=== PATIENT | male | born 1955 | race African-American/Black ===

== ENCOUNTER 2016-07-03 14:40 | Emergency (ER) | payer SELFPAY ==
[~2016-07-03] VITALS: Ht 175.3 cm; Wt 77.0 kg
[2016-07-03 14:43] VITALS: BP 155/88; PULSE 96; RESP 20; TEMP 98.7; O2SAT 95
[2016-07-03 16:00] VITALS: BP 147/82; PULSE 82; RESP 18; O2SAT 96
--- NOTE | 2016-07-03 16:23 | PD ---
HPI . "I can't piss" Chief Complaint: Complaint Time Seen by Provider: 16:15 Travel History International Travel<30 days: No Contact w/Intl Traveler<30days: No Traveled to known affect area: No History of Present Illness HPI The patient reports a 3 week history of increasing difficulty urinating. He states that he just dribbles. He states that he has to go to the bathroom very frequently. He denies any malodorous urine. He denies any previous similar history. PFSH Social History Tobacco Use: Yes Allergies-Medications (Allergen,Severity, Reaction): Coded Allergies: No Known Allergies (Unverified , 07/03/16) Review of Systems Except as stated in HPI: all other systems reviewed are Neg Genitourinary: Positive: Frequency, Nocturia, Hesitancy, Dribbling Physical Exam Narrative GENERAL: Anxious appearing 61-year-old man whose speech is a little bit pressured. SKIN: Warm and dry. HEAD: Atraumatic. Normocephalic. EYES: Pupils equal and round. ENT: No nasal bleeding or discharge. Mucous membranes pink and moist. NECK: Trachea midline. CARDIOVASCULAR: Regular rate and rhythm. RESPIRATORY: No accessory muscle use. GASTROINTESTINAL: Abdomen soft, non-tender, nondistended. I do not feel a distended bladder. MUSCULOSKELETAL: No obvious deformities. No edema. NEUROLOGICAL: Awake and alert. No obvious cranial nerve deficits. Motor grossly within normal limits. Normal speech. PSYCHIATRIC: Appropriate mood and affect; insight and judgment normal. Data Data Last Documented VS Vital Signs Date Time Temp Pulse Resp B/P Pulse Ox O2 Delivery O2 Flow Rate FiO2 07/03/16 17:15 16 07/03/16 14:43 98.7 96 155/88 95 Room Air Orders Urinary Catheter Management HENRIETTA.Q8H (07/03/16 16:18) Urinalysis - C+S If Indicated (07/03/16 16:18) Labs Laboratory Tests Test 07/03/16 17:10 Urine Color YELLOW Urine Turbidity CLEAR Urine pH 6.5 Urine Specific [place] 1.018 Urine Protein NEG mg/dL Urine Glucose (UA) NEG mg/dL Urine Ketones NEG mg/dL Urine Occult Blood NEG Urine Nitrite NEG Urine Bilirubin NEG Urine Urobilinogen LESS THAN 2.0 MG/DL Urine Leukocyte Esterase NEG Urine RBC 4 /hpf Urine Squamous Epithelial <1 /hpf Cells Urine Mucus FEW /lpf Microscopic Urinalysis Comment CATH-CULT NOT IND MDM Medical Decision Making Medical Screen Exam Complete: Yes Emergency Medical Condition: Yes Medical Record Reviewed: Yes (he does not have any old records in our system.) Differential Diagnosis Differential diagnosis of urinary retention includes but is not limited to BPH, prostatitis, UTI Narrative Course Patient presents with symptoms compatible with prostatism. A Bowers will be placed and a urinalysis was sent. He put out 1400 cc of urine. His UA is negative. I will treat him for prostatitis with Bactrim and Flomax. He should see his PMD later this week. Diagnosis Primary Impression: Acute urinary retention Patient Instructions: General Instructions, Urinary Retention in Men (ED) Scripts Tamsulosin (Flomax)0.4 Mg Cap0.4 Mg PO HS #30 CAP Ref 0 Prov:Tami Jose MD 07/03/16 Sulfamethoxazole-Trimethoprim (Bactrim DS)800-160 Mg Tab1 Tab PO BID 30 Days Ref 0 Prov:Tami Jose MD 07/03/16 Disposition: 01 DISCHARGE HOME Condition: Stable Tami Jose MD Jul 03, 2016 16:23
[2016-07-03 17:25] LABS: BLOOD, URINE NEG (NEG); COMMENT (UR) CATH-CULT NOT IND; CULTURE IF INDICATED CATH CULTURE NOT IND; GLUCOSE,URINE NEG (NEG); KETONE, URINE NEG (NEG); MUCUS URINE FEW /lpf (OCC); NITRITE,URINE NEG (NEG); PH, URINE 6.5 (5.0-8.5); SQUAMOUS EPITHELIAL CELL URINE <1 /hpf (0-5); URINE COLOR YELLOW (YELLW/STRAW)
[2016-07-03] MEDS ORDERED: TAMS5CAP PO (17:41)
[2016-07-03] MEDS ORDERED: BACT800T5 PO (17:41)
[2016-09-20] MEDS ORDERED: HYDR-3133 PO (08:46)
[2016-09-20] MEDS ORDERED: RISP4TAB41 PO (08:46)
[2016-09-20] MEDS ORDERED: FLUP5TAB PO (08:46)
== END 2016-07-03 18:29 | disposition home or self-care (01) ==
LOC: NEPA 14:40
DX: R33.9 Retention of urine, unspecified (principal); Z72.0 Tobacco use; N41.9 Inflammatory disease of prostate, unspecified
CPT/HCPCS: 51702; 81001

== ENCOUNTER 2016-07-11 14:43 | Emergency (ER) | payer SELFPAY ==
[~2016-07-11] VITALS: Ht 182.9 cm; Wt 90.0 kg
[~2016-07-11 14:43] MED LIST: BACT800T5 PO; TAMS5CAP PO
[2016-07-11 14:45] VITALS: BP 139/74; PULSE 81; RESP 18; TEMP 98.7; O2SAT 97
--- NOTE | 2016-07-11 14:55 | PD ---
HPI Chief Complaint: Complaint Time Seen by Provider: 14:53 Travel History International Travel<30 days: No Contact w/Intl Traveler<30days: No Traveled to known affect area: No History of Present Illness HPI 61-year-old male was brought into the emergency room by EMS from the [facility]. He shouldn't was here about 10 days ago for urinary retention and had a Bowers catheter placed in. He was discharged home with a Bowers catheter and was asked to follow up with urology outpatient. However because he is in [facility] rehabilitation he was unable to have the staff get an appointment for him with the urologist. He was concerned about how long the catheter was safe to be in and hence came in. Vital signs are stable and he is not in any other distress or discomfort. [facility] Past Medical History Narrative Medical List of his past medical history as reviewed from the nursing note. Bipolar Disorder: Yes Diminished Hearing: No Schizophrenia: Yes Tetanus Vaccination: Unknown Past Surgical History Appendectomy: Yes Social History Alcohol Use: No Tobacco Use: Yes Substance Use: No Allergies-Medications (Allergen,Severity, Reaction): Coded Allergies: No Known Allergies (Unverified , 07/03/16) Comments No known drug allergies. Reported Meds & Prescriptions Reported Meds & Active Scripts Active Flomax (Tamsulosin HCl) 0.4 Mg Cap 0.4 Mg PO HS Bactrim DS (Sulfamethoxazole-Trimethoprim) 800-160 Mg Tab 1 Tab PO BID 30 Days Narrative Medication List of his home medications reviewed from the nursing note. Review of Systems Except as stated in HPI: all other systems reviewed are Neg Physical Exam Narrative GENERAL: Awake, alert, no obvious distress SKIN: Warm and dry. HEAD: Atraumatic. Normocephalic. EYES: Pupils equal and round. No scleral icterus. No injection or drainage. ENT: No nasal bleeding or discharge. Mucous membranes pink and moist. NECK: Trachea midline. No JVD. CARDIOVASCULAR: Regular rate and rhythm. No murmur appreciated. RESPIRATORY: No accessory muscle use. Clear to auscultation. Breath sounds equal bilaterally. GASTROINTESTINAL: Abdomen soft, non-tender, nondistended. Hepatic and splenic margins not palpable. MUSCULOSKELETAL: No obvious deformities. No clubbing. No cyanosis. No edema. NEUROLOGICAL: Awake and alert. No obvious cranial nerve deficits. Motor grossly within normal limits. Normal speech. PSYCHIATRIC: Appropriate mood and affect; insight and judgment normal. Data Data Last Documented VS Vital Signs Date Time Temp Pulse Resp B/P Pulse Ox O2 Delivery O2 Flow Rate FiO2 07/11/16 16:34 82 18 135/79 98 07/11/16 14:45 98.7 Orders ^ Other Nursing Orders (07/11/16 14:53) MDM Medical Decision Making Medical Screen Exam Complete: Yes Emergency Medical Condition: Yes Medical Record Reviewed: Yes Differential Diagnosis Bowers catheter Narrative Course 3:06 PM the nurses calling [facility] to reiterate to them that the patient needs to follow up with the urologist and the need to make the appointment for him. She will also teach him to keep the Bowers catheter clean. Otherwise there is nothing else for me to do and I'll discharge him. He understands and agrees with this plan. Procedures EKG Prior to Arrival: No Diagnosis Primary Impression: Bowers catheter in place Referrals: Primary Care Physician 2 days Additional Instructions: Please follow-up with the urologist whose name and number was given to you when the catheter was put in. Call the office tomorrow and keep the appointment that would be given to you. The urologist will be able to direct to regarding the Bowers catheter removal. Med/Other Pt SpecificInfo: No Change to Meds Disposition: 01 DISCHARGE HOME Condition: Stable Kennedi Ramirez MD Jul 11, 2016 14:55
[2016-07-11 16:34] VITALS: BP 135/79
[2016-09-20] MEDS ORDERED: FLUP5TAB PO (08:46)
[2016-09-20] MEDS ORDERED: HYDR-3133 PO (08:46)
[2016-09-20] MEDS ORDERED: RISP4TAB41 PO (08:46)
== END 2016-07-11 16:35 | disposition home or self-care (01) ==
LOC: NEPA 14:43
DX: Z46.6 Encounter for fitting and adjustment of urinary device (principal); Z87.448 Personal history of other diseases of urinary system; Z86.59 Personal history of other mental and behavioral disorders; Z72.0 Tobacco use
CPT/HCPCS: 99283

== ENCOUNTER 2016-07-15 12:22 | Emergency (ER) | payer SELFPAY ==
[~2016-07-15] VITALS: Ht 177.8 cm; Wt 80.0 kg
[2016-07-15 12:26] VITALS: BP 149/91; PULSE 94; RESP 18; TEMP 98.7; O2SAT 97
--- NOTE | 2016-07-15 12:33 | PD ---
HPI Chief Complaint: Complaint Time Seen by Provider: 12:30 Travel History International Travel<30 days: No Contact w/Intl Traveler<30days: No History of Present Illness HPI 61-year-old male here with complaint of urinary problems. Patient has been seen here twice recently with urinary retention and had a Bowers catheter Lasix. His urinalysis was unremarkable. He was to follow up with urology but has not yet been able to do so. Patient states that he has a scant amount of blood in his Bowers catheter bag in the morning when he wakes up. He notes a slight amount of local irritation of the tip of the penis. He has not been able follow -up with urology and would like his catheter out. PFSH Past Medical History Bipolar Disorder: Yes Diminished Hearing: No Schizophrenia: Yes Past Surgical History Appendectomy: Yes Social History Alcohol Use: No Tobacco Use: Yes Substance Use: No Allergies-Medications (Allergen,Severity, Reaction): Coded Allergies: No Known Allergies (Unverified , 07/03/16) Reported Meds & Prescriptions Reported Meds & Active Scripts Active Flomax (Tamsulosin HCl) 0.4 Mg Cap 0.4 Mg PO HS Bactrim DS (Sulfamethoxazole-Trimethoprim) 800-160 Mg Tab 1 Tab PO BID 30 Days Review of Systems Except as stated in HPI: all other systems reviewed are Neg Physical Exam Narrative GENERAL: Well-appearing male in no acute distress SKIN: Warm and dry. HEAD: Normocephalic. EYESNo scleral icterus. No injection or drainage. ENT: Mucous membranes pink and moist. CARDIOVASCULAR: Regular rate and rhythm. RESPIRATORY: No accessory muscle use. GASTROINTESTINAL: Abdomen soft, non-tender, nondistended. GENITOURINARY: External external male genitalia with indwelling catheter MUSCULOSKELETAL: Moves all extremity's normally NEUROLOGICAL: Awake and alert. Normal speech. PSYCHIATRIC: Appropriate mood and affect; insight and judgment normal. MDM Medical Decision Making Medical Screen Exam Complete: Yes Emergency Medical Condition: Yes Medical Record Reviewed: Yes Differential Diagnosis 61-year-old male here with complaint of urinary problems. I history patient has evidence of BPH. He has had a Boewrs catheter in for well over a week at this time without removal in trial of void due to inability to follow-up with urology. He does not have any infectious symptoms and a scant amount of blood that he has in the morning is likely from local irritation from the catheter itself. Narrative Course Catheter was removed and patient will be discharged home to continue his Flomax for trial of void. Instructed to follow-up with urologist and return to the ER if his urinary retention returns for repeat catheter placement. Diagnosis Primary Impression: Encounter for Bowers catheter removal Referrals: Urologist call for appointment Additional Instructions: Continue Flomax as previously prescribed. Follow-up with urologist as discussed. Return to the ER for inability to urinate. Med/Other Pt SpecificInfo: No Change to Meds Disposition: 01 DISCHARGE HOME Condition: Stable Annette Andino MD Jul 15, 2016 12:33
[2016-09-20] MEDS ORDERED: HYDR-3133 PO (08:46)
[2016-09-20] MEDS ORDERED: RISP4TAB41 PO (08:46)
[2016-09-20] MEDS ORDERED: FLUP5TAB PO (08:46)
== END 2016-07-15 14:30 | disposition home or self-care (01) ==
LOC: NEPE 12:22 → NEDAMB 14:30
DX: R31.9 Hematuria, unspecified (principal); Z72.0 Tobacco use; Z46.6 Encounter for fitting and adjustment of urinary device
CPT/HCPCS: 99283

== ENCOUNTER 2016-07-18 19:25 | Emergency (ER) | payer SELFPAY ==
[2016-07-18 19:27] VITALS: BP 141/97; PULSE 91; RESP 18; TEMP 98.3; O2SAT 95
--- NOTE | 2016-07-19 00:12 | PD ---
HPI Chief Complaint: Complaint Time Seen by Provider: 23:44 Travel History International Travel<30 days: No Contact w/Intl Traveler<30days: No Traveled to known affect area: No History of Present Illness HPI 51-year-old male arrives complaining of urinary retention for about 20 hours. He has a constant pressure-like sensation throughout the lower abdomen. He had a Bowers placed here due to urinary retention. It was removed 3 days prior per his request. He reports compliance with Flomax. He has had difficulty establishing urology follow-up and has not seen a urologist. No vomiting or fever. A Bowers catheter was placed here in 2.5 L of dark urine were collected. He reports resolution of pain. Discussed in detail necessity of urology follow-up Flomax compliance. Patient demonstrates understanding of this point. We'll send the patient home with a Bowers to leg bag. [facility] and [facility] follow-[facility]. PFSH Past Medical History Bipolar Disorder: Yes Diminished Hearing: No Schizophrenia: Yes Tetanus Vaccination: Unknown Influenza Vaccination: Yes Past Surgical History Appendectomy: Yes Social History Alcohol Use: No Tobacco Use: Yes Substance Use: No Allergies-Medications (Allergen,Severity, Reaction): Coded Allergies: No Known Allergies (Unverified , 07/18/16) Reported Meds & Prescriptions Reported Meds & Active Scripts Active Flomax (Tamsulosin HCl) 0.4 Mg Cap 0.4 Mg PO HS Bactrim DS (Sulfamethoxazole-Trimethoprim) 800-160 Mg Tab 1 Tab PO BID 30 Days Review of Systems Except as stated in HPI: all other systems reviewed are Neg Physical Exam Narrative GENERAL: 61 yo M, WNWD SKIN: Warm and dry. HEAD: Atraumatic. Normocephalic. EYES: Pupils equal and round. No scleral icterus. No injection or drainage. ENT: No nasal bleeding or discharge. Mucous membranes pink and moist. NECK: Trachea midline. No JVD. CARDIOVASCULAR: Regular rate and rhythm. RESPIRATORY: No accessory muscle use. Clear to auscultation. Breath sounds equal bilaterally. GASTROINTESTINAL: Distended lower abdomen with tenderness to palpation. : Penis normal. No bleed at meatus. Suprapubic abdomen distended. MUSCULOSKELETAL: Extremities without clubbing, cyanosis, or edema. No obvious deformities. NEUROLOGICAL: Awake and alert. No obvious cranial nerve deficits. Motor grossly within normal limits. Five out of 5 muscle strength in the arms and legs. Normal speech. PSYCHIATRIC: Appropriate mood and affect; insight and judgment normal. Data Data Last Documented VS Vital Signs Date Time Temp Pulse Resp B/P Pulse Ox O2 Delivery O2 Flow Rate FiO2 07/18/16 23:44 16 07/18/16 19:27 98.3 91 141/97 95 Room Air VS reviewed Orders Urinary Catheter Insert/Apply (07/18/16 23:51) MDM Medical Decision Making Medical Screen Exam Complete: Yes Emergency Medical Condition: Yes Medical Record Reviewed: Yes Differential Diagnosis BPH, hematuria, prostatitis Narrative Course Refer to HPI. Diagnosis Primary Impression: Acute urinary retention Referrals: Hari Guerrero MD 1 day Additional Instructions: You have a choice when it comes to health care, and we are glad that you chose [facility]. Hopefully, we have met your expectations on today's visit. You are welcome to return to [facility] at any time, as we are committed to meeting the health care needs of our community. Med/Other Pt SpecificInfo: No Change to Meds Disposition: 01 DISCHARGE HOME Condition: Domo Morris MD Jul 19, 2016 00:12
[2016-09-20] MEDS ORDERED: FLUP5TAB PO (08:46)
[2016-09-20] MEDS ORDERED: HYDR-3133 PO (08:46)
[2016-09-20] MEDS ORDERED: RISP4TAB41 PO (08:46)
== END 2016-07-19 01:10 | disposition home or self-care (01) ==
LOC: NEPE 19:25
DX: R33.8 Other retention of urine (principal); Z72.0 Tobacco use
CPT/HCPCS: 51702

== ENCOUNTER 2016-08-08 13:32 | Emergency (ER) | payer OTHER ==
[~2016-08-08] VITALS: Ht 177.8 cm; Wt 80.0 kg
[2016-08-08 13:33] VITALS: BP 147/85; PULSE 102; RESP 14; TEMP 98.6; O2SAT 95
--- NOTE | 2016-08-08 16:01 | PD ---
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 Patient states he was having trouble urinating and the catheter was placed approximately one month ago. He is currently reporting suprapubic pressure that "his urine has been slow". He denies any fevers, chills, nausea, vomiting, chest pain or shortness of breath. Patient is currently living at [facility] and has not been able to follow-up with a urologist. PFSH Past Medical History Bipolar Disorder: Yes (schizoaffective bipolar disorder) Diminished Hearing: No Medical other: Yes (urinary hesitancy) Schizophrenia: Yes Past Surgical History Appendectomy: Yes Social History Alcohol Use: No Tobacco Use: Yes Substance Use: No Allergies-Medications (Allergen,Severity, Reaction): Coded Allergies: No Known Allergies (Unverified , 07/18/16) Reported Meds & Prescriptions Reported Meds & Active Scripts Active Flomax (Tamsulosin HCl) 0.4 Mg Cap 0.4 Mg PO HS Bactrim DS (Sulfamethoxazole-Trimethoprim) 800-160 Mg Tab 1 Tab PO BID 30 Days Review of Systems Except as stated in HPI: all other systems reviewed are Neg Genitourinary: Positive: Dysuria, Decreased Urinary Output, Pelvic Pain Physical Exam Narrative GENERAL: Well-nourished, well-developed patient. SKIN: Warm and dry. HEAD: Normocephalic. EYES: No scleral icterus. No injection or drainage. NECK: Supple, trachea midline. No JVD or lymphadenopathy. CARDIOVASCULAR: Regular rate and rhythm without murmurs, gallops, or rubs. RESPIRATORY: Breath sounds equal bilaterally. No accessory muscle use. GASTROINTESTINAL: Abdomen soft, non-tender, nondistended. MUSCULOSKELETAL: No cyanosis, or edema. GENITOURINARY: Circumcised. Testes descended bilaterally without evidence of rotation. No lesions or erythema. No urethral discharge. No erythema or bleeding at the meatus. Concentrated urine noted in leg bag. BACK: Nontender without obvious deformity. No CVA tenderness. Data Data Last Documented VS Vital Signs Date Time Temp Pulse Resp B/P Pulse Ox O2 Delivery O2 Flow Rate FiO2 08/08/16 13:33 98.6 102 14 147/85 95 Room Air Orders Urinalysis - C+S If Indicated (08/08/16 15:55) Urine Culture (08/08/16 16:15) Labs Laboratory Tests Test 08/08/16 16:15 Urine Color YELLOW Urine Turbidity CLOUDY Urine pH 6.5 Urine Specific [place] 1.021 Urine Protein 100 mg/dL Urine Glucose (UA) NEG mg/dL Urine Ketones NEG mg/dL Urine Occult Blood LARGE Urine Nitrite NEG Urine Bilirubin NEG Urine Urobilinogen 2.0 MG/DL Urine Leukocyte Esterase LARGE Urine RBC 55 /hpf Urine WBC 145 /hpf Urine Squamous Epithelial <1 /hpf Cells Urine Bacteria MANY /hpf Microscopic Urinalysis Comment CATH-CULTURE IND [facility] Medical Decision Making Medical Screen Exam Complete: Yes Emergency Medical Condition: Yes Medical Record Reviewed: Yes Interpretation(s) Vital Signs Date Time Temp Pulse Resp B/P Pulse Ox O2 Delivery O2 Flow Rate FiO2 08/08/16 13:33 98.6 102 14 147/85 95 Room Air Laboratory Tests Test 08/08/16 16:15 Urine Color YELLOW Urine Turbidity CLOUDY Urine pH 6.5 Urine Specific [place] 1.021 Urine Protein 100 mg/dL Urine Glucose (UA) NEG mg/dL Urine Ketones NEG mg/dL Urine Occult Blood LARGE Urine Nitrite NEG Urine Bilirubin NEG Urine Urobilinogen 2.0 MG/DL Urine Leukocyte Esterase LARGE Urine RBC 55 /hpf Urine WBC 145 /hpf Urine Squamous Epithelial <1 /hpf Cells Urine Bacteria MANY /hpf Microscopic Urinalysis Comment CATH-CULTURE IND Vital Signs Date Time Temp Pulse Resp B/P Pulse Ox O2 Delivery O2 Flow Rate FiO2 08/08/16 13:33 98.6 102 14 147/85 95 Room Air Differential Diagnosis Obstruction versus BPH versus UTI versus dermatitis versus other Narrative Course Patient is a 61-year-old male presenting to the emergency department for evaluation of suprapubic pressure, slow urinary drainage from his catheter. He also presents with irritation at the tip of his penis. His vital signs are stable, urinalysis ordered and pending. Care of patient will be transferred to provider when bed is available. Senait Villafuerte Aug 08, 2016 16:01
[2016-08-08 16:51] LABS: BACTERIA, URINE MANY /hpf; BLOOD, URINE LARGE (NEG); GLUCOSE,URINE NEG (NEG); KETONE, URINE NEG (NEG); NITRITE,URINE NEG (NEG); PH, URINE 6.5 (5.0-8.5); SQUAMOUS EPITHELIAL CELL URINE <1 /hpf (0-5); URINE COLOR YELLOW (YELLW/STRAW)
[2016-08-08 16:52] LABS: COMMENT (UR) CATH-CULTURE IND; CULTURE IF INDICATED CATH CULTURE IND
[2016-08-08] MEDS ORDERED: CEPH-460 PO (18:31)
--- NOTE | 2016-08-08 18:31 | PD ---
Data Data Last Documented VS Vital Signs Date Time Temp Pulse Resp B/P Pulse Ox O2 Delivery O2 Flow Rate FiO2 08/08/16 18:27 18 99 Room Air 08/08/16 13:33 98.6 102 147/85 Orders Urinalysis - C+S If Indicated (08/08/16 15:55) Urine Culture (08/08/16 16:15) Urinary Catheter Insert/Apply (08/08/16 18:27) Labs Laboratory Tests Test 08/08/16 16:15 Urine Color YELLOW Urine Turbidity CLOUDY Urine pH 6.5 Urine Specific [place] 1.021 Urine Protein 100 mg/dL Urine Glucose (UA) NEG mg/dL Urine Ketones NEG mg/dL Urine Occult Blood LARGE Urine Nitrite NEG Urine Bilirubin NEG Urine Urobilinogen 2.0 MG/DL Urine Leukocyte Esterase LARGE Urine RBC 55 /hpf Urine WBC 145 /hpf Urine Squamous Epithelial <1 /hpf Cells Urine Bacteria MANY /hpf Microscopic Urinalysis Comment CATH-CULTURE IND MDM Supervised Visit with ARTIE: Yes Narrative Course I, Dr. Andino, have reviewed the advance practice practioner's documentation and am in agreement, met with the patient face to face, made the diagnosis, and the medical decision making was done by me. *My assessment and Findings: 61-year-old male with indwelling urinary catheter here with complaint of "slow urine" and slight discomfort at the tip of the urethral meatus. No notable findings on examination, normal external male genitalia. Approximately 300 mL urine patient's leg bag. This is dark in color with slight sediment. Differential includes UTI, urinary retention, catheter irritation from foreign body. Patient's urinalysis notable for large white cells with leukocyte esterase, red cells and bacteria. His catheter was exchanged and he will be treated with antibiotics for home and outpatient urology follow-up. Diagnosis Primary Impression: Urinary tract infection Qualified Code: N30.01 - Acute cystitis with hematuria Additional Impression: Bowers catheter in place Referrals: Rubio Zuleta MD call for appointment Primary Care Physician call for appointment Urologist call for appointment Additional Instruction: Finish antibiotics as prescribed. Follow-up with urologist as discussed. Med/Other Pt SpecificInfo: Prescription(s) given Scripts Cephalexin (Keflex)500 Mg [id number] Mg PO Q8H #30 CAP Ref 0 Prov:Annette Andino MD 08/08/16 Disposition: 01 DISCHARGE HOME Condition: Stable Annette Andino MD Aug 08, 2016 18:31
[2016-08-08 19:01] VITALS: BP 126/81; TEMP 97.8
[2016-09-20] MEDS ORDERED: RISP4TAB41 PO (08:46)
[2016-09-20] MEDS ORDERED: HYDR-3133 PO (08:46)
[2016-09-20] MEDS ORDERED: FLUP5TAB PO (08:46)
== END 2016-08-08 19:03 | disposition home or self-care (01) ==
LOC: NEPE 13:32
DX: N39.0 Urinary tract infection, site not specified (principal); B96.29 Other Escherichia coli [E. coli] as the cause of diseases classified elsewhere; Z72.0 Tobacco use
CPT/HCPCS: 51702; 81001; 87077; 87086; 87186

== ENCOUNTER 2016-08-26 09:02 | Emergency (ER) | payer OTHER ==
[~2016-08-26] VITALS: Ht 175.3 cm; Wt 77.0 kg
[~2016-08-26 09:02] MED LIST changes: -BACT800T5 PO; +CEPH-460 PO
[2016-08-26 09:04] VITALS: BP 140/88; PULSE 88; RESP 20; TEMP 97.9; O2SAT 94
--- NOTE | 2016-08-26 09:37 | PD ---
HPI Chief Complaint: Complaint Time Seen by Provider: 09:21 Travel History International Travel<30 days: No Contact w/Intl Traveler<30days: No Traveled to known affect area: No History of Present Illness HPI 61yo M with PMH of schizophrenia, urinary retention presents to the ED with c/o foul smelling urine and urine leaking around the catheter. Pt had ramriez catheter inserted in June 2016 for urinary retention and then came on and had ramirez catheter replaced and treated for UTI with cephalexin. Pt states that he is having trouble following up with urology as outpatient. Denies any fever, chest pain, sob, abdominal pain, hematuria, back pain. PFSH Past Medical History Bipolar Disorder: Yes (schizoaffective bipolar disorder) Diminished Hearing: No Schizophrenia: Yes Tetanus Vaccination: Unknown Influenza Vaccination: No Past Surgical History Appendectomy: Yes Social History Alcohol Use: No Tobacco Use: Yes Substance Use: No Allergies-Medications (Allergen,Severity, Reaction): Coded Allergies: No Known Allergies (Unverified , 08/08/16) Reported Meds & Prescriptions Reported Meds & Active Scripts Active Cipro (Ciprofloxacin HCl) 500 Mg Tab 500 Mg PO BID 7 Days Review of Systems Except as stated in HPI: all other systems reviewed are Neg Physical Exam Narrative GENERAL: 61yo M not in distress. SKIN: Warm and dry. HEAD: Atraumatic. Normocephalic. EYES: Pupils equal and round. No scleral icterus. No injection or drainage. ENT: No nasal bleeding or discharge. Mucous membranes pink and moist. NECK: Trachea midline. No JVD. CARDIOVASCULAR: Regular rate and rhythm. No murmur appreciated. RESPIRATORY: No accessory muscle use. Clear to auscultation. Breath sounds equal bilaterally. GASTROINTESTINAL: Abdomen soft, non-tender, nondistended. No rebound tenderness or guarding. : No leaking around ramirez catheter but urine in ramirez bag does appear dark. No testicular ttp. No penile rash. MUSCULOSKELETAL: No obvious deformities. No clubbing. No cyanosis. No edema. NEUROLOGICAL: Awake and alert. No obvious cranial nerve deficits. Motor grossly within normal limits. Normal speech. PSYCHIATRIC: Appropriate mood and affect; insight and judgment normal. Data Data Last Documented VS Vital Signs Date Time Temp Pulse Resp B/P Pulse Ox O2 Delivery O2 Flow Rate FiO2 08/26/16 11:18 97.9 82 20 137/86 96 Room Air Orders Urinalysis - C+S If Indicated (08/26/16 09:31) Urinary Catheter Insert/Apply (08/26/16 10:23) Gc And Chlamydia Pcr (08/26/16 10:37) Azithromycin (Zithromax) (08/26/16 10:45) Ceftriaxone Inj (Rocephin Inj) (08/26/16 10:45) Lidocaine 1% Inj (50 Ml) (Xylocaine 1% I (08/26/16 10:45) Urine Culture (08/26/16 10:50) Labs Laboratory Tests Test 08/26/16 10:50 Urine Color YELLOW Urine Turbidity HAZY Urine pH 6.5 Urine Specific [place] 1.007 Urine Protein TRACE mg/dL Urine Glucose (UA) NEG mg/dL Urine Ketones NEG mg/dL Urine Occult Blood MOD Urine Nitrite NEG Urine Bilirubin NEG Urine Urobilinogen LESS THAN 2.0 MG/DL Urine Leukocyte Esterase LARGE Urine RBC 71 /hpf Urine WBC 181 /hpf Urine WBC Clumps MANY Urine Bacteria MOD /hpf Microscopic Urinalysis Comment CULTURE INDICATED MDM Medical Decision Making Medical Screen Exam Complete: Yes Emergency Medical Condition: Yes Differential Diagnosis UTI vs. BPH Narrative Course 61yo well appearing male here with foul smelling urine. Ramirez catheter removed. Will wait and see if pt is able to urinate on his own. If he is unable to urinate, then will replace ramirez catheter. Will obtain UA. UA showed large leukocyte. Moderate bacteria. Will give cipro 500mg PO and prescription to go home with. Last urine culture showed Ecoli that is sensitive to cipro. Pt had some white discharge on tip of penis here so GC/ chlamydia was sent. Pt given ceftriaxone 250mg IM and azithromycin 1gm PO. Return precautions given. Pt to go home with ramirez catheter with leg bag because he was not able to urine. Diagnosis Primary Impression: UTI (urinary tract infection) Qualified Code: N39.0 - Urinary tract infection with hematuria, site unspecified Referrals: Benji Simpson MD 2 days Patient Instructions: General Instructions Departure Forms: Tests/Procedures Additional Instructions: Please follow up with urology in 1-2 days. Return to the ED if symptoms worsen. Med/Other Pt SpecificInfo: Prescription(s) given Scripts Ciprofloxacin (Cipro)500 Mg Tam515 Mg PO BID 7 Days Ref 0 Prov:Lizy Cornelius DO 08/26/16 Disposition: 01 DISCHARGE HOME Condition: Stable Lizy Cornelius DO Aug 26, 2016 09:37
[2016-08-26] MEDS ORDERED: LIDOCAINE HCL 1% 50 ML VIAL XX ONE (10:45)
[2016-08-26] MEDS ORDERED: cefTRIAXone 250 MG VIAL IM ONE (10:45)
[2016-08-26] MEDS ORDERED: AZITHROMYCIN 250 MG TAB PO ONE (10:45)
[2016-08-26 11:18] VITALS: BP 137/86; PULSE 82; RESP 20; TEMP 97.9; O2SAT 96
[2016-08-26 11:25] LABS: BACTERIA, URINE MOD /hpf; BLOOD, URINE MOD (NEG); COMMENT (UR) CULTURE INDICATED; CULTURE IF INDICATED CULTURE INDICATED; GLUCOSE,URINE NEG (NEG); KETONE, URINE NEG (NEG); NITRITE,URINE NEG (NEG); PH, URINE 6.5 (5.0-8.5); URINE COLOR YELLOW (YELLW/STRAW)
[2016-08-26] MEDS ORDERED: CIPR-9 PO (11:47)
[2016-08-26] MEDS ORDERED: CIPROFLOXACIN 500 MG TAB PO ONE (12:00)
[2016-08-26 16:24] LABS: CHLAMYDIA PCR NOT DETECTED (NOT DETECT); NEISSERIA PCR NOT DETECTED (NOT DETECT)
[2016-09-20] MEDS ORDERED: RISP4TAB41 PO (08:46)
[2016-09-20] MEDS ORDERED: HYDR-3133 PO (08:46)
[2016-09-20] MEDS ORDERED: FLUP5TAB PO (08:46)
== END 2016-08-26 12:23 | disposition home or self-care (01) ==
LOC: NEPC 09:02
DX: N39.0 Urinary tract infection, site not specified (principal); B96.20 Unspecified Escherichia coli [E. coli] as the cause of diseases classified elsewhere; Z48.03 Encounter for change or removal of drains; Z46.6 Encounter for fitting and adjustment of urinary device; F20.9 Schizophrenia, unspecified; Z72.0 Tobacco use
CPT/HCPCS: 51702; 81001; 87077; 87086; 87186; 87491; 87591; 96372; 99283; J0696

== ENCOUNTER 2016-09-16 11:28 | Emergency (ER) | payer OTHER ==
[~2016-09-16] VITALS: Ht 175.3 cm; Wt 75.0 kg
[~2016-09-16 11:28] MED LIST changes: -CEPH-460 PO; +CIPR-9 PO; -TAMS5CAP PO
[2016-09-16 11:29] VITALS: BP 132/93; PULSE 94; RESP 17; TEMP 98.2; O2SAT 95
--- NOTE | 2016-09-16 11:59 | PD ---
HPI Chief Complaint: Complaint Time Seen by Provider: 11:42 Travel History International Travel<30 days: No Contact w/Intl Traveler<30days: No Traveled to known affect area: No History of Present Illness MATHIEU Is is a 61-year-old male who presents for evaluation of Bowers catheter issues. He reports that for the past few days he has been having some leaking from the urethra around his Bowers catheter. He also notes that the leg bag has become loose and his leg strap has been failing with the skin adhesive wearing off. The patient has been with a Bowers catheter for the past 2 months. It was placed because of urinary retention issues. He has not yet seen an urologist but he does have an appointment with Dr. Simpson on September 20 to evaluate this issue. He does endorse dark yellow urine which he reports is normal and at his baseline. He denies any abdominal pain, nausea or vomiting, flank pain, fevers or chills. He has no other complaints. PFSH Past Medical History Bipolar Disorder: Yes (schizoaffective bipolar disorder) Diminished Hearing: No Schizophrenia: Yes Past Surgical History Appendectomy: Yes Social History Alcohol Use: No Tobacco Use: Yes Substance Use: No Allergies-Medications (Allergen,Severity, Reaction): Coded Allergies: No Known Allergies (Unverified , 08/08/16) Reported Meds & Prescriptions Reported Meds & Active Scripts Active Cipro (Ciprofloxacin HCl) 500 Mg Tab 500 Mg PO BID 7 Days Review of Systems General / Constitutional: No: Fever, Chills Gastrointestinal: No: Nausea, Vomiting, Abdominal Pain Genitourinary: Positive: Other (Bowers catheter issues), No: Flank Pain Physical Exam Narrative GENERAL: Pleasant well-developed well-nourished male in no acute distress SKIN: Warm and dry. CARDIOVASCULAR: Regular rate and rhythm. No murmur appreciated. RESPIRATORY: No accessory muscle use. Clear to auscultation. Breath sounds equal bilaterally. GASTROINTESTINAL: Abdomen soft, non-tender, nondistended. Hepatic and splenic margins not palpable. : Bowers catheter in place. The leg bag adhesive connectors broken. The leg bag is strapped on his lower leg and this is pulling at the catheter. Yellow urine is noted in the leg bag. MUSCULOSKELETAL: No obvious deformities. NEUROLOGICAL: Awake and alert. No obvious cranial nerve deficits. Motor grossly within normal limits. Normal speech. Data Data Last Documented VS Vital Signs Date Time Temp Pulse Resp B/P Pulse Ox O2 Delivery O2 Flow Rate FiO2 09/16/16 11:29 98.2 94 17 132/93 95 MDM Medical Decision Making Medical Screen Exam Complete: Yes Emergency Medical Condition: Yes Medical Record Reviewed: Yes Differential Diagnosis Bowers catheter replacement, Bowers catheter malfunction, Bowers catheter obstruction Narrative Course 61-year-old male with urinary retention symptoms suggestive of prostatic issues for months. He presents with issues with this Bowers catheter. The catheter was removed and a new 16 [place] catheter was placed. The patient is stable for discharge, outpatient follow-up with urology in 4 days as scheduled. Diagnosis Primary Impression: Encounter for Bowers catheter removal Referrals: Benji Simpson MD Additional Instructions: Follow-up with urology in 4 days as scheduled. Stay well hydrated. Return for any emergent medical conditions. Med/Other Pt SpecificInfo: No Change to Meds Disposition: 01 DISCHARGE HOME Condition: Stable Yaw Gilbert Sep 16, 2016 11:59
--- NOTE | 2016-09-16 12:03 | PD ---
Data Data Last Documented VS Vital Signs Date Time Temp Pulse Resp B/P Pulse Ox O2 Delivery O2 Flow Rate FiO2 09/16/16 11:29 98.2 94 17 132/93 95 MDM Supervised Visit with ARTIE: Yes Narrative Course I, Dr. Andino, have reviewed the advance practice practioner's documentation and am in agreement, met with the patient face to face, made the diagnosis, and the medical decision making was done by me. *My assessment and Findings: 61-year-old male with chronic indwelling Bowers here with complaint of leakage around the urethra and at the connection to the catheter bag. Normal external male genitalia. Differential includes family practice medical doctor malfunction, and need for Bowers catheter replacement. Catheter was replaced with resolution of all the above symptoms. Patient has follow-up with urology next week for further management of his urinary retention and catheter management. Diagnosis Primary Impression: Encounter for Bowers catheter removal Referrals: Benji Simpson MD Patient Instructions: General Instructions Departure Forms: Tests/Procedures Additional Instruction: Follow-up with urology in 4 days as scheduled. Stay well hydrated. Return for any emergent medical conditions. Med/Other Pt SpecificInfo: No Change to Meds Disposition: 01 DISCHARGE HOME Condition: Stable Annette Andino MD Sep 16, 2016 12:03
[2016-09-20] MEDS ORDERED: FLUP5TAB PO (08:46)
[2016-09-20] MEDS ORDERED: HYDR-3133 PO (08:46)
[2016-09-20] MEDS ORDERED: RISP4TAB41 PO (08:46)
== END 2016-09-16 12:46 | disposition home or self-care (01) ==
LOC: NEPB 11:28
DX: T83.011A Breakdown (mechanical) of indwelling urethral catheter, initial encounter (principal); Z46.6 Encounter for fitting and adjustment of urinary device
CPT/HCPCS: 99282

== ENCOUNTER 2016-09-19 07:37 | Emergency (ER) | payer OTHER ==
[~2016-09-19] VITALS: Ht 175.3 cm; Wt 75.0 kg
[2016-09-19 07:46] VITALS: BP 148/93; PULSE 87; RESP 20; TEMP 97; O2SAT 97
--- NOTE | 2016-09-19 08:24 | PD ---
HPI Chief Complaint: Abdominal Pain Time Seen by Provider: 08:09 Travel History International Travel<30 days: No Contact w/Intl Traveler<30days: No Traveled to known affect area: No History of Present Illness HPI The patient is a 61-year-old Denise male who presents to the emergency department for abdominal pain and decreased Bowers catheter output. Patient has a history of urinary difficulties of last several months and has been referred to see a urologist. The patient has an appointment to see a urologist tomorrow , Dr. Simpson. The patient recently had his Bowers catheter changed in the emergency department on September 10. The patient states since the Bowres catheter has been changed, he has difficulty with urinary output. He notes only a small amount of urinary output which is mostly blood, now complains of abdominal pain and distention. He denies any current chest pain, shortness breath, nausea, vomiting, or fever. Symptoms are moderate, possibly exacerbated by decreased urinary output, and there are no current alleviating factors. PFSH Past Medical History Bipolar Disorder: Yes (schizoaffective bipolar disorder) Diminished Hearing: No Schizophrenia: Yes Past Surgical History Appendectomy: Yes Social History Alcohol Use: No Tobacco Use: Yes Substance Use: No Allergies-Medications (Allergen,Severity, Reaction): Coded Allergies: No Known Allergies (Unverified , 09/19/16) Reported Meds & Prescriptions Reported Meds & Active Scripts Active Reported [psych meds ] Review of Systems Except as stated in HPI: all other systems reviewed are Neg General / Constitutional: No: Fever Cardiovascular: No: Chest Pain or Discomfort Respiratory: No: Shortness of Breath Gastrointestinal: Positive: Abdominal Pain, No: Nausea, Vomiting Genitourinary: Positive: Hematuria, Decreased Urinary Output Physical Exam Narrative GENERAL: Awake, alert, pleasant 61-year-old male who appears his stated age and is in no acute respiratory distress. He does appear moderate discomfort. SKIN: Warm and dry. HEAD: Atraumatic. Normocephalic. EYES: No injection or drainage. ENT: No nasal bleeding or discharge. Mucous membranes pink and moist. NECK: Trachea midline. No JVD. CARDIOVASCULAR: Regular rate and rhythm. No murmur appreciated. RESPIRATORY: No accessory muscle use. Clear to auscultation. Breath sounds equal bilaterally. GASTROINTESTINAL: Abdomen slightly distended, bladder is palpable superior to the umbilicus. Genitourinary: Bowers catheter in place, minimal bloody fluid noted in leg bag. MUSCULOSKELETAL: No obvious deformities. No clubbing. No cyanosis. No edema. NEUROLOGICAL: Awake and alert. No obvious cranial nerve deficits. Motor grossly within normal limits. Normal speech. PSYCHIATRIC: Appropriate mood and affect; insight and judgment normal. Data Data Last Documented VS Vital Signs Date Time Temp Pulse Resp B/P Pulse Ox O2 Delivery O2 Flow Rate FiO2 09/19/16 09:00 20 09/19/16 08:51 57 132/82 98 Room Air 09/19/16 07:46 97.0 Orders Ob Poc Ultrasound (09/19/16 ) Basic Metabolic Panel (Bmp) (09/19/16 08:18) Urinalysis - C+S If Indicated (09/19/16 08:18) Complete Blood Count With Diff (09/19/16 08:18) Bladder/Catheter Irrigation (09/19/16 08:18) Morphine Inj (Morphine Inj) (09/19/16 08:30) Ondansetron Inj (Zofran Inj) (09/19/16 08:30) Urine Culture (09/19/16 08:40) Ciprofloxacin 400 Mg Premix (Cipro 400 M (09/19/16 09:45) Labs Laboratory Tests Test 09/19/16 09/19/16 09/19/16 08:40 08:50 10:59 Urine Color YELLOW Urine Turbidity HAZY Urine pH 6.0 Urine Specific [place] 1.018 Urine Protein TRACE mg/dL Urine Glucose (UA) NEG mg/dL Urine Ketones NEG mg/dL Urine Occult Blood MOD Urine Nitrite POS Urine Bilirubin NEG Urine Urobilinogen LESS THAN 2.0 MG/DL Urine Leukocyte Esterase LARGE Urine RBC /hpf Urine WBC 94 /hpf Urine Amorphous Sediment RARE Urine Bacteria MOD /hpf Microscopic Urinalysis Comment CATH-CULTURE IND White Blood Count 5.5 TH/MM3 Red Blood Count 5.57 MIL/MM3 Hemoglobin 16.2 GM/DL Hematocrit 50.4 % Mean Corpuscular Volume 90.4 FL Mean Corpuscular Hemoglobin 29.1 PG Mean Corpuscular Hemoglobin 32.2 % Concent Red Cell Distribution Width 15.3 % Platelet Count 208 TH/MM3 Mean Platelet Volume 8.5 FL Neutrophils (%) (Auto) 55.9 % Lymphocytes (%) (Auto) 26.6 % Monocytes (%) (Auto) 13.7 % Eosinophils (%) (Auto) 3.2 % Basophils (%) (Auto) 0.6 % Neutrophils # (Auto) 3.1 TH/MM3 Lymphocytes # (Auto) 1.5 TH/MM3 Monocytes # (Auto) 0.8 TH/MM3 Eosinophils # (Auto) 0.2 TH/MM3 Basophils # (Auto) 0.0 TH/MM3 CBC Comment DIFF FINAL Differential Comment Sodium Level 144 MEQ/L Potassium Level 6.2 MEQ/L Chloride Level 112 MEQ/L Carbon Dioxide Level 26.3 MEQ/L Anion Gap 6 MEQ/L Blood Urea Nitrogen 14 MG/DL Creatinine 0.97 MG/DL Estimat Glomerular Filtration 95 ML/MIN Rate Random Glucose 108 MG/DL Calcium Level 9.4 MG/DL [facility] Medical Decision Making Medical Screen Exam Complete: Yes Emergency Medical Condition: Yes Medical Record Reviewed: Yes Interpretation(s) Laboratory Tests Test 09/19/16 09/19/16 09/19/16 08:40 08:50 10:59 Urine Color YELLOW Urine Turbidity HAZY Urine pH 6.0 Urine Specific [place] 1.018 Urine Protein TRACE mg/dL Urine Glucose (UA) NEG mg/dL Urine Ketones NEG mg/dL Urine Occult Blood MOD Urine Nitrite POS Urine Bilirubin NEG Urine Urobilinogen LESS THAN 2.0 MG/DL Urine Leukocyte Esterase LARGE Urine RBC /hpf Urine WBC 94 /hpf Urine Amorphous Sediment RARE Urine Bacteria MOD /hpf Microscopic Urinalysis Comment CATH-CULTURE IND White Blood Count 5.5 TH/MM3 Red Blood Count 5.57 MIL/MM3 Hemoglobin 16.2 GM/DL Hematocrit 50.4 % Mean Corpuscular Volume 90.4 FL Mean Corpuscular Hemoglobin 29.1 PG Mean Corpuscular Hemoglobin 32.2 % Concent Red Cell Distribution Width 15.3 % Platelet Count 208 TH/MM3 Mean Platelet Volume 8.5 FL Neutrophils (%) (Auto) 55.9 % Lymphocytes (%) (Auto) 26.6 % Monocytes (%) (Auto) 13.7 % Eosinophils (%) (Auto) 3.2 % Basophils (%) (Auto) 0.6 % Neutrophils # (Auto) 3.1 TH/MM3 Lymphocytes # (Auto) 1.5 TH/MM3 Monocytes # (Auto) 0.8 TH/MM3 Eosinophils # (Auto) 0.2 TH/MM3 Basophils # (Auto) 0.0 TH/MM3 CBC Comment DIFF FINAL Differential Comment Sodium Level 144 MEQ/L Potassium Level 6.2 MEQ/L Chloride Level 112 MEQ/L Carbon Dioxide Level 26.3 MEQ/L Anion Gap 6 MEQ/L Blood Urea Nitrogen 14 MG/DL Creatinine 0.97 MG/DL Estimat Glomerular Filtration 95 ML/MIN Rate Random Glucose 108 MG/DL Calcium Level 9.4 MG/DL Differential Diagnosis Differential diagnosis includes Bowers catheter malfunction, clocked Bowers catheter, hematuria, benign prostatic hypertrophy, bladder carcinoma, acute renal failure, hyperkalemia. Narrative Course IV was established, labs are drawn and sent, and the patient was placed on cardiac telemetry monitoring and continuous pulse oximetry monitoring. The patient was administer morphine and Zofran for his discomfort. Bowers catheter was irrigated at bedside. Bowers catheter was unable to be irrigated, therefore , was removed and a new Bowers catheter was placed. The patient immediately had 1200 mL also clear urine, therefore, Bowers catheter was clamped. The patient then had a Bowers catheter unclamped and continue to have good output. Patient had multiple re-collections secondary to hemolysis, potassium was elevated at 6.2, however, there was hemolysis. The patient's creatinine is normal. Patient has good urinary outflow, was noted to have a UTI, was administered Cipro 4 mg intravenously. The patient was discharged home on Cipro and is advised to follow-up with his urologist tomorrow as directed. Diagnosis Primary Impression: Acute urinary retention Additional Impression: UTI (urinary tract infection) Qualified Code: N39.0 - Urinary tract infection with hematuria, site unspecified Patient Instructions: General Instructions Additional Instructions: Cipro as directed. Follow-up with her primary physician. Return if symptoms worsen or progress. Med/Other Pt SpecificInfo: Prescription(s) given Scripts Ciprofloxacin (Cipro)500 Mg [id number] Mg PO BID 7 Days Ref 0 Prov:Saud Collins MD 09/19/16 Disposition: 01 DISCHARGE HOME Condition: Stable Saud Collins MD Sep 19, 2016 08:24
[2016-09-19] MEDS ORDERED: ONDANSETRON HCL 4 MG/2 ML VIAL IV PUSH ONE (08:30)
[2016-09-19] MEDS ORDERED: MORPHINE SULFATE 4 MG/ML INJ IV PUSH ONE (08:30)
[2016-09-19] MEDS ORDERED: [UNRECOGNIZED DRUG - REMARK] (08:50)
[2016-09-19 08:51] VITALS: BP 132/82; PULSE 57; RESP 20; O2SAT 57; O2SAT 98
[2016-09-19] MEDS ORDERED: psych meds (08:51)
[2016-09-19 09:00] VITALS: RESP 20
[2016-09-19 09:17] LABS: AUTOMATED NEUTROPHIL # 3.1 TH/MM3 (1.8-7.7); BASOPHIL % 0.6 % (0.0-2.0); EOSINOPHIL # 0.2 TH/MM3 (0-0.4); EOSINOPHIL % 3.2 % (0.0-4.0); HEMATOCRIT 50.4 % (39.0-51.0); HEMO FLAGS DIFF FINAL; LYMPH % 26.6 % (9.0-44.0); LYMPHOCYTE # 1.5 TH/MM3 (1.0-4.8); MEAN CELL VOLUME 90.4 FL (80.0-100.0); MEAN CORPUSCULAR HEMOGLOBIN 29.1 PG (27.0-34.0); MEAN CORPUSCULAR HGB CONC 32.2 % (32.0-36.0); MONO % 13.7 % (0.0-8.0); NEUT % 55.9 % (16.0-70.0); PLATELET COUNT 208 TH/MM3 (150-450); RED BLOOD COUNT 5.57 MIL/MM3 (4.50-5.90); RED CELL DISTRIBUTION WIDTH 15.3 % (11.6-17.2); WHITE BLOOD COUNT 5.5 TH/MM3 (4.0-11.0)
[2016-09-19 09:34] LABS: BACTERIA, URINE MOD /hpf; BLOOD, URINE MOD (NEG); COMMENT (UR) CATH-CULTURE IND; CULTURE IF INDICATED CATH CULTURE IND; GLUCOSE,URINE NEG (NEG); KETONE, URINE NEG (NEG); NITRITE,URINE POS (NEG); URINE COLOR YELLOW (YELLW/STRAW)
[2016-09-19] MEDS ORDERED: CIPROFLOXACIN 400 MG PREMIX 200 ML IV ONE (09:45)
[2016-09-19 11:26] LABS: BICARBONATE 26.3 MEQ/L (21.0-32.0)
[2016-09-19 11:27] LABS: POTASSIUM 6.2 MEQ/L (3.5-5.1)
[2016-09-19] MEDS ORDERED: CIPR-9 PO (11:34)
[2016-09-19 11:53] VITALS: BP 134/84
[2016-09-20] MEDS ORDERED: RISP4TAB41 PO (08:46)
[2016-09-20] MEDS ORDERED: FLUP5TAB PO (08:46)
[2016-09-20] MEDS ORDERED: HYDR-3133 PO (08:46)
== END 2016-09-19 12:16 | disposition home or self-care (01) ==
LOC: NEPE 07:37
DX: R33.9 Retention of urine, unspecified (principal); N39.0 Urinary tract infection, site not specified; R31.9 Hematuria, unspecified; Z72.0 Tobacco use; B95.7 Other staphylococcus as the cause of diseases classified elsewhere
CPT/HCPCS: 51700; 80048; 81001; 85025; 86403; 87077; 87086; 87186; 96365; 96375; 99284; J0744; J2270; J2405

== ENCOUNTER 2016-09-24 22:47 | Emergency (ER) | payer OTHER ==
[~2016-09-24] VITALS: Ht 175.3 cm; Wt 72.0 kg
[~2016-09-24 22:47] MED LIST changes: +FLUP5TAB PO; +HYDR-3133 PO; +RISP4TAB41 PO
[2016-09-24 22:55] VITALS: BP 138/90; PULSE 62; RESP 17; TEMP 98.6; O2SAT 99
--- NOTE | 2016-09-24 23:13 | PD ---
HPI Chief Complaint: Complaint Time Seen by Provider: 23:09 Travel History International Travel<30 days: No Contact w/Intl Traveler<30days: No History of Present Illness HPI 61-year-old male here with complaint of inability to urinate. Patient has indwelling catheter for urinary retention. Patient states that it stopped draining this afternoon and he has not been able to urinate since. He notes some suprapubic discomfort and fullness in the urge to urinate. He has not noticed any sediment in the catheter. He has a scant amount of blood around the tip the urethral meatus, which patient states is not unusual for him. PFSH Past Medical History Bipolar Disorder: Yes (schizoaffective bipolar disorder) Diminished Hearing: No Schizophrenia: Yes Past Surgical History Appendectomy: Yes Social History Alcohol Use: No Tobacco Use: Yes (1ppd) Substance Use: No (hx of ) Allergies-Medications (Allergen,Severity, Reaction): Coded Allergies: No Known Allergies (Unverified , 09/20/16) Reported Meds & Prescriptions Reported Meds & Active Scripts Active Cipro (Ciprofloxacin HCl) 500 Mg Tab 500 Mg PO BID 7 Days Reported Fluphenazine (Fluphenazine HCl) 5 Mg Tab 10 Mg PO HS Hydroxyzine HCl 25 Mg Tab 25 Mg PO TID Risperdal (Risperidone) 4 Mg Tab 4 Mg PO HS Review of Systems Except as stated in HPI: all other systems reviewed are Neg Physical Exam Narrative GENERAL: Well-appearing male in no acute distress SKIN: Focused skin assessment warm/dry. HEAD: Normocephalic. EYES: No scleral icterus. No injection or drainage. ENT: Mucous membranes pink and moist. CARDIOVASCULAR: Regular rate and rhythm. RESPIRATORY: No accessory muscle use. GASTROINTESTINAL: Abdomen soft, minimal suprapubic tenderness without rebound or guarding GENITOURINARY: External external male genitalia with indwelling Bowers catheter MUSCULOSKELETAL: No obvious deformities. No edema. NEUROLOGICAL: Awake and alert. Normal speech. PSYCHIATRIC: Appropriate mood and affect; insight and judgment normal. MDM Medical Decision Making Medical Screen Exam Complete: Yes Emergency Medical Condition: Yes Medical Record Reviewed: Yes Differential Diagnosis 61-year-old male here with complaint of inability to urinate, Bowers catheter problem. Differential includes misplaced catheter, catheter malfunction, clotted catheter, UTI. Narrative Course Patient's catheter was flushed on examination and afterwards urine began flowing freely. There is no evidence of sediment, blood. Catheter did not need to be replaced. Patient felt markedly improved and will be discharged home. Diagnosis Primary Impression: Acute urinary retention Additional Impression: Bowers catheter in place Referrals: Urologist call for appointment Patient Instructions: General Instructions, Urinary Retention in Men (DC) Additional Instructions: Follow-up with urologist as scheduled. Return to the ER for the warning signs discussed. Med/Other Pt SpecificInfo: No Change to Meds Disposition: 01 DISCHARGE HOME Condition: Stable Annette Andino MD Sep 24, 2016 23:13
== END 2016-09-25 06:49 | disposition home or self-care (01) ==
LOC: NEPE 22:47 → NEPA 09-25 06:49
DX: R33.9 Retention of urine, unspecified (principal); F17.210 Nicotine dependence, cigarettes, uncomplicated; T83.018D Breakdown (mechanical) of other urinary catheter, subsequent encounter
CPT/HCPCS: 99283

== ENCOUNTER 2016-09-30 01:51 | Emergency (ER) | payer OTHER ==
[~2016-09-30] VITALS: Ht 177.8 cm; Wt 68.0 kg
[2016-09-30 02:01] VITALS: BP 140/91; PULSE 87; RESP 15; TEMP 98.7
--- NOTE | 2016-09-30 02:25 | PD ---
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 Having these problems intermittently for the past several months. He had a 20 Ivorian 3-way catheter in place. He said worsening pain with decreased urine output of lower abdominal swelling for the past day. History Past Medical History Narrative Medical Schizoaffective/bipolar disorder Urinary retention Social History Alcohol Use: No Tobacco Use: Yes (1ppd) Allergies-Medications (Allergen,Severity, Reaction): Coded Allergies: No Known Allergies (Unverified , 09/20/16) Reported Meds & Prescriptions Reported Meds & Active Scripts Active Cipro (Ciprofloxacin HCl) 500 Mg Tab 500 Mg PO BID 7 Days Reported Fluphenazine (Fluphenazine HCl) 5 Mg Tab 10 Mg PO HS Hydroxyzine HCl 25 Mg Tab 25 Mg PO TID Risperdal (Risperidone) 4 Mg Tab 4 Mg PO HS Review of Systems Except as stated in HPI: all other systems reviewed are Neg Physical Exam Narrative GENERAL: 61-year-old man, no acute distress. SKIN: Focused skin assessment warm/dry. CARDIOVASCULAR: Regular rate and rhythm. No murmur appreciated. RESPIRATORY: No accessory muscle use. Clear to auscultation. Breath sounds equal bilaterally. GASTROINTESTINAL: Abdomen soft with some lower abdominal distention. Tenderness in the lower abdomen. : Normal external male genitalia, three-way [address] MUSCULOSKELETAL: No obvious deformities. No clubbing. No cyanosis. No edema. NEUROLOGICAL: Awake and alert. No obvious cranial nerve deficits. Motor grossly within normal limits. Normal speech. PSYCHIATRIC: Appropriate mood and affect; insight and judgment normal. Data Data Last Documented VS Vital Signs Date Time Temp Pulse Resp B/P Pulse Ox O2 Delivery O2 Flow Rate FiO2 09/30/16 02:06 90 15 96 Room Air 09/30/16 02:01 98.7 140/91 Orders Urinalysis - C+S If Indicated (09/30/16 02:20) Basic Metabolic Panel (Bmp) (09/30/16 02:20) Urine Culture (09/30/16 02:35) Labs Laboratory Tests Test 09/30/16 02:35 Urine Color YELLOW Urine Turbidity HAZY Urine pH 7.0 Urine Specific [place] 1.014 Urine Protein 30 mg/dL Urine Glucose (UA) NEG mg/dL Urine Ketones NEG mg/dL Urine Occult Blood MOD Urine Nitrite NEG Urine Bilirubin NEG Urine Urobilinogen LESS THAN 2.0 MG/DL Urine Leukocyte Esterase LARGE Urine RBC /hpf Urine WBC 160 /hpf Urine WBC Clumps FEW Urine Bacteria OCC /hpf Urine Mucus FEW /lpf Microscopic Urinalysis Comment CATH-CULTURE IND Sodium Level 145 MEQ/L Potassium Level 4.1 MEQ/L Chloride Level 110 MEQ/L Carbon Dioxide Level 30.6 MEQ/L Anion Gap 4 MEQ/L Blood Urea Nitrogen 12 MG/DL Creatinine 0.97 MG/DL Estimat Glomerular Filtration 95 ML/MIN Rate Random Glucose 99 MG/DL Calcium Level 8.8 MG/DL [facility] Medical Decision Making Medical Screen Exam Complete: Yes Emergency Medical Condition: Yes Interpretation(s) LABS: UA with gross hematuria BMP is unremarkable Differential Diagnosis Obstructed Bowers catheter, UTI, obstructive uropathy, other Narrative Course Medical decision-making 61-year-old man with Bowers catheter. Obstructed again. Catheter was attempted to be flushed with was unable to be flushed. When it was removed and revealed extensive amount of sediment in the catheter tip. Irregular 20 Ivorian coud catheter was placed by me. Good urine output. We'll check creatinine and UA. Diagnosis Primary Impression: Acute urinary retention Additional Impression: Bowers catheter in place Additional Instructions: Continue to care for Bowers catheter and instructed. Follow-up with your primary physician and urology as planned. Return to the emergency department for any new or worsening symptoms. Disposition: 01 DISCHARGE HOME Condition: Stable Pancho Mccormick MD Sep 30, 2016 02:25
[2016-09-30 02:54] LABS: BACTERIA, URINE OCC /hpf; BLOOD, URINE MOD (NEG); GLUCOSE,URINE NEG (NEG); KETONE, URINE NEG (NEG); MUCUS URINE FEW /lpf (OCC); NITRITE,URINE NEG (NEG); URINE COLOR YELLOW (YELLW/STRAW)
[2016-09-30 02:55] LABS: COMMENT (UR) CATH-CULTURE IND; CULTURE IF INDICATED CATH CULTURE IND
[2016-09-30 03:10] LABS: BICARBONATE 30.6 MEQ/L (21.0-32.0); POTASSIUM 4.1 MEQ/L (3.5-5.1)
== END 2016-09-30 04:21 | disposition home or self-care (01) ==
LOC: NEPC 01:51
DX: R33.9 Retention of urine, unspecified (principal); T83.018A Breakdown (mechanical) of other urinary catheter, initial encounter; F20.9 Schizophrenia, unspecified; F17.210 Nicotine dependence, cigarettes, uncomplicated; B95.7 Other staphylococcus as the cause of diseases classified elsewhere; X58.XXXA Exposure to other specified factors, initial encounter
CPT/HCPCS: 80048; 81001; 86403; 87077; 87086; 87186; 99283

== ENCOUNTER 2016-10-18 15:57 | Emergency (ER) | payer OTHER ==
[~2016-10-18] VITALS: Ht 185.4 cm; Wt 86.4 kg
[2016-10-18 16:47] VITALS: BP 158/90; PULSE 90; RESP 16; TEMP 98.6
[2016-10-18 17:48] LABS: AUTOMATED NEUTROPHIL # 2.8 TH/MM3 (1.8-7.7); BASOPHIL % 0.8 % (0.0-2.0); EOSINOPHIL # 0.1 TH/MM3 (0-0.4); EOSINOPHIL % 1.9 % (0.0-4.0); HEMATOCRIT 47.9 % (39.0-51.0); HEMO FLAGS DIFF FINAL; LYMPHOCYTE # 1.7 TH/MM3 (1.0-4.8); MEAN CELL VOLUME 89.7 FL (80.0-100.0); MEAN CORPUSCULAR HEMOGLOBIN 29.2 PG (27.0-34.0); MEAN CORPUSCULAR HGB CONC 32.5 % (32.0-36.0); MONO % 14.6 % (0.0-8.0); NEUT % 51.7 % (16.0-70.0); PLATELET COUNT 248 TH/MM3 (150-450); RED BLOOD COUNT 5.34 MIL/MM3 (4.50-5.90); RED CELL DISTRIBUTION WIDTH 14.5 % (11.6-17.2); WHITE BLOOD COUNT 5.3 TH/MM3 (4.0-11.0)
[2016-10-18 17:51] LABS: BACTERIA, URINE OCC /hpf; BLOOD, URINE LARGE (NEG); COMMENT (UR) CULTURE INDICATED; CULTURE IF INDICATED CULTURE INDICATED; GLUCOSE,URINE NEG (NEG); KETONE, URINE NEG (NEG)
[2016-10-18 17:52] LABS: NITRITE,URINE POS (NEG); URINE COLOR RED (YELLW/STRAW)
[2016-10-18 17:54] LABS: AMPHETAMINE, URINE NEG (NEG); BARBITURATES, URINE NEG (NEG); COCAINE, URINE POS (NEG)
[2016-10-18 17:54] LABS: ANION GAP 6 MEQ/L (5-15)
[2016-10-18 17:57] LABS: ALKALINE PHOSPHATASE 56 U/L (45-117); ALT (GPT) 88 U/L (12-78); AST (GOT) 81 U/L (15-37); BICARBONATE 29.5 MEQ/L (21.0-32.0); BLOOD UREA NITROGEN 12 MG/DL (7-18); CHLORIDE 110 MEQ/L (98-107); GLOMERULAR FILTRATION RATE 81 ML/MIN (>89); POTASSIUM 4.3 MEQ/L (3.5-5.1); SODIUM (NA) 145 MEQ/L (136-145); TOTAL BILIRUBIN ADULT 0.6 MG/DL (0.2-1.0)
--- NOTE | 2016-10-18 19:39 | PD ---
HPI Chief Complaint: Psychiatric Symptoms Time Seen by Provider: 19:35 Travel History International Travel<30 days: No Contact w/Intl Traveler<30days: No Traveled to known affect area: No History of Present Illness HPI 61-year-old male presents to the emergency Department under Ornelas act by a psychiatric nurse practitioner Jelani Nichols. The patient states he was staying at a [facility] house, but was "put out" by his mounted police officer today. He states he would do Jelani Nichols looking for help. He states that he needs his living conditions figured out. He states that he is homicidal at this does not get figured out. He reports a history of schizophrenia. Patient cannot recall medications he is on, but states he takes them as prescribed. When asked if he is suicidal or homicidal, he states that he will be homicidal soon. Patient denies any alcohol or drug use. Patient does have Bowers catheter for urinary retention. He denies any other complaints at this time. PFSH Past Medical History Medical History: Unable to Obtain Bipolar Disorder: Yes (schizoaffective bipolar disorder) Diminished Hearing: No Schizophrenia: Yes Past Surgical History Surgical History: Unable to Obtain Appendectomy: Yes Social History Alcohol Use: No Tobacco Use: No Substance Use: No Allergies-Medications (Allergen,Severity, Reaction): Coded Allergies: No Known Allergies (Unverified , 10/18/16) Reported Meds & Prescriptions Reported Meds & Active Scripts Active Review of Systems Except as stated in HPI: all other systems reviewed are Neg Physical Exam Narrative GENERAL: Well-nourished, well-developed male patient, afebrile. SKIN: Focused skin assessment warm/dry. HEAD: Normocephalic. Atraumatic. EYES: No scleral icterus. No injection or drainage. NECK: Supple, trachea midline. No JVD or lymphadenopathy. CARDIOVASCULAR: Regular rate and rhythm without murmurs, gallops, or rubs. RESPIRATORY: Breath sounds equal bilaterally. No accessory muscle use. Lungs sounds are clear to auscultation. GASTROINTESTINAL: Abdomen soft, non-tender, nondistended. MUSCULOSKELETAL: No cyanosis, or edema. PSYCHIATRIC: No delusional thought processes. No hallucinations. Data Data Last Documented VS Vital Signs Date Time Temp Pulse Resp B/P Pulse Ox O2 Delivery O2 Flow Rate FiO2 10/18/16 16:47 98.6 90 16 158/90 Orders Complete Blood Count With Diff (10/18/16 17:03) Comprehensive Metabolic Panel (10/18/16 17:03) Urinalysis - C+S If Indicated (10/18/16 17:03) Psych Screen (10/18/16 17:03) Drug Screen, Random Urine (10/18/16 17:03) Alcohol (Ethanol) (10/18/16 17:03) Urine Culture (10/18/16 17:15) Labs Laboratory Tests Test 10/18/16 10/18/16 17:15 17:25 Urine Color RED Urine Turbidity CLOUDY Urine pH 8.0 Urine Specific [place] 1.021 Urine Protein GREATER THAN 600 mg/dL Urine Glucose (UA) NEG mg/dL Urine Ketones NEG mg/dL Urine Occult Blood LARGE Urine Nitrite POS Urine Bilirubin NEG Urine Urobilinogen LESS THAN 2.0 MG/DL Urine Leukocyte Esterase LARGE Urine RBC /hpf Urine WBC /hpf Urine Bacteria OCC /hpf Microscopic Urinalysis Comment CULTURE INDICATED Urine Opiates Screen NEG Urine Barbiturates Screen NEG Urine Amphetamines Screen NEG Urine Benzodiazepines Screen NEG Urine Cocaine Screen POS Urine Cannabinoids Screen NEG White Blood Count 5.3 TH/MM3 Red Blood Count 5.34 MIL/MM3 Hemoglobin 15.6 GM/DL Hematocrit 47.9 % Mean Corpuscular Volume 89.7 FL Mean Corpuscular Hemoglobin 29.2 PG Mean Corpuscular Hemoglobin 32.5 % Concent Red Cell Distribution Width 14.5 % Platelet Count 248 TH/MM3 Mean Platelet Volume 8.2 FL Neutrophils (%) (Auto) 51.7 % Lymphocytes (%) (Auto) 31.0 % Monocytes (%) (Auto) 14.6 % Eosinophils (%) (Auto) 1.9 % Basophils (%) (Auto) 0.8 % Neutrophils # (Auto) 2.8 TH/MM3 Lymphocytes # (Auto) 1.7 TH/MM3 Monocytes # (Auto) 0.8 TH/MM3 Eosinophils # (Auto) 0.1 TH/MM3 Basophils # (Auto) 0.0 TH/MM3 CBC Comment DIFF FINAL Differential Comment Sodium Level 145 MEQ/L Potassium Level 4.3 MEQ/L Chloride Level 110 MEQ/L Carbon Dioxide Level 29.5 MEQ/L Anion Gap 6 MEQ/L Blood Urea Nitrogen 12 MG/DL Creatinine 1.12 MG/DL Estimat Glomerular Filtration 81 ML/MIN Rate Random Glucose 93 MG/DL Calcium Level 9.3 MG/DL Total Bilirubin 0.6 MG/DL Aspartate Amino Transf 81 U/L (AST/SGOT) Alanine Aminotransferase 88 U/L (ALT/SGPT) Alkaline Phosphatase 56 U/L Total Protein 7.4 GM/DL Albumin 3.2 GM/DL Ethyl Alcohol Level LESS THAN 3 MG/DL MDM Medical Decision Making Medical Screen Exam Complete: Yes Emergency Medical Condition: Yes Medical Record Reviewed: Yes Differential Diagnosis Schizophrenia versus bipolar disorder versus substance abuse versus UTI Narrative Course 61-year-old male with a history of paranoid schizophrenia presents to the emergency Department under Ornelas act by psychiatric nurse practitioner. CBC is unremarkable. CMP shows elevated AST of 81, ALT of 88. Urine drug screen is positive for cocaine. Alcohol level is less than 3. UA shows large occult blood, positive nitrate, large leukocyte esterase, innumerable WBC. I reviewed previous culture from earlier this month which shows that bacteria sensitive to Macrobid. Patient will be started on Macrobid twice daily. First dose is given. Patient is medically cleared for psychiatric screening and disposition. Diagnosis Primary Impression: Schizophrenia Qualified Code: F20.0 - Paranoid schizophrenia Additional Instructions: Patient is medically cleared for psychiatric screening and disposition. Condition: Stable Yazan,Lorraine TOLLIVER Oct 18, 2016 19:39
[2016-10-18 19:53] VITALS: O2SAT 97
[2016-10-18 22:00] VITALS: BP 160/78; PULSE 85; RESP 19; O2SAT 95
[2016-10-18] MEDS: NITROFURANTOIN MONOHYD MACROCR 100 MG CAP PO SCH (22:30)
[2016-10-19 02:00] VITALS: BP 137/82; PULSE 58; RESP 18; O2SAT 96
[2016-10-19 06:21] VITALS: BP 150/95; PULSE 78; RESP 16; O2SAT 96
--- NOTE | 2016-10-19 09:04 | PD.CONS ---
Provisional Diagnosis Admission Date [place] I. Chronic paranoid schizophrenia [place] II. Deferred [place] III. Chronic urinary retention, tardive dyskinesia [place] IV. Poor family support [place] V. 55 History of Present Illness Service Psychiatry Consult Requested By Primary Care Physician Unknown HPI The patient is a 61-year-old man, domiciled in a skilled nursing house , with psychiatric history of chronic paranoid schizophrenia, cocaine use disorder, numerous psychiatric hospitalizations, some of them [facility] hospital[facility], his Risperdal 4 mg and fluphenazine time 10 mg twice a day, medical history of urinary retention, who presents to the emergency Department under Ornelas act by a psychiatric nurse practitioner Jelani Nichols. 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 He states he would do Jelani Nichols looking for help. He states that he needs his living conditions figured out and also his chronic urinary retention taking care. He stated that he is homicidal at this does not get figured out, but doesn't have any specific targets. Patient does have Bowers catheter for urinary retention. He denies any other complaints at this time. CBC is unremarkable. CMP shows elevated AST of 81, ALT of 88. Urine drug screen is positive for cocaine. Alcohol level is less than 3. UA shows large occult blood, positive nitrate, large leukocyte esterase, innumerable WBC. Today on psychiatric evaluation patient is calm, cooperative and pleasant. He says that he has a very upset because everybody is rejecting him. He has gone to the doctor for his urinary retention problem, "I keep turning me back". Patient reports for compliant with psychotropic regimen, good response, no significant side effects. He has visible periodical, involuntary choreoathetoid perioral and distal feet movements, suggestive of tardive dyskinesia. He denies depressive symptoms, he denies anhedonia, he denies hopelessness, he denies helplessness, he denies suicidal and homicidal ideation. He clarifies that he feels that he wants to hurt somebody "when I don 't have my problem solve, but I wouldn't do anything to anybody". He denies visual and auditory hallucinations at this moment. No prominent paranoia, no delusions, no agitation, no aggressive behavior has been observed or reported on longitudinal observation in the ER. Patient reports daily use of cocaine, denies alcohol and other drugs.. Review of Systems Constitutional: DENIES: Diaphoretic episodes, Fatigue, Fever, Weight gain, Weight loss, Chills, Dizziness, Change in appetite, Night Sweats Endocrine: DENIES: Heat/cold intolerance, Polydipsia, Polyuria, Polyphagia Eyes: DENIES: Blurred vision, Diplopia, Eye inflammation, Eye pain, Vision loss , Photosensitivity, Double Vision Ears, nose, mouth, throat: DENIES: Tinnitus, Hearing loss, Vertigo, Nasal discharge, Oral lesions, Throat pain, Hoarseness, Ear Pain, Running Nose, Epistaxis, Sinus Pain, Toothache, Odynophagia Cardiovascular: DENIES: Chest pain, Palpitations, Syncope, Dyspnea on Exertion , PND, Lower Extremity Edema, Orthopnea, Claudication Gastrointestinal: DENIES: Abdominal pain, Black stools, Bloody stools, Constipation, Diarrhea, Nausea, Vomiting, Difficulty Swallowing, Anorexia Genitourinary: DENIES: Sexual dysfunction, Urinary frequency, Urinary incontinence, Urgency, Hematuria, Dysuria, Nocturia, Penile Discharge, Testicular Pain, Testicular Swelling Musculoskeletal: DENIES: Joint pain, Muscle aches, Stiffness, Joint Swelling, Back pain, Neck pain Integumentary: DENIES: Abnormal pigmentation, Nail changes, Pruritus, Rash Immunologic/allergic: DENIES: Eczema, Urticaria Neurologic: DENIES: Abnormal gait, Headache, Localized weakness, Paresthesias, Seizures, Speech Problems, Tremor, Poor Balance Psychiatric: DENIES: Anxiety, Confusion, Mood changes, Depression, Hallucinations, Agitation, Suicidal Ideation, Homicidal Ideation, Delusions Other Patient does have chronic visible tardive dyskinesia Past Family Social History Coded Allergies: No Known Allergies (Unverified , 10/18/16) Discontinued Reported Medications Fluphenazine 5 Mg Tab10 Mg PO HS 09/20/16 Hydroxyzine HCl 25 Mg Tab25 Mg PO TID Ref 0 09/20/16 Risperidone (Risperdal)4 Mg Tab4 Mg PO HS #30 TAB Ref 0 09/20/16 Discontinued Scripts Ciprofloxacin (Cipro)500 Mg [id number] Mg PO BID 7 Days Ref 0 Prov:Saud Collins MD 09/19/16 Current Medications Medications (Trade) Dose Ordered Sig/Aileen Route Start Time Stop Time Status Last Admin (Macrobid) 100 mg BIDPC PO 10/18/16 19:45 10/18/16 22:30 Family History he denies Social History Patient was born and raised in [place] [facility] [facility], he lives in a half way house, no family contact, supported by [facility], highest level of education fourth grade Physical Exam Patient has visible involuntary, automatic, choreoathetoid movement of periorbital area on both feet. Vital Signs Vital Signs Date Time Temp Pulse Resp B/P Pulse Ox O2 Delivery O2 Flow Rate FiO2 10/19/16 06:21 78 16 150/95 96 Room Air 10/18/16 16:47 98.6 Lab Results CBC is unremarkable. CMP shows elevated AST of 81, ALT of 88. Urine drug screen is positive for cocaine. Alcohol level is less than 3. UA shows large occult blood, positive nitrate, large leukocyte esterase, innumerable WBC. I reviewed previous culture from earlier this month which shows that bacteria sensitive to Macrobid. Mental Status Examination Appearance man, age appearing, poor hygiene, he is calm, cooperative, Speech: Unremarkable Orientation: x3 Memory: Impaired (describe) Thought Process: Logical Thought Content: Unremarkable Hallucination Type: None Attention and Concentration: Good Suicidal Ideation: No Previous Suicide Attempts: No Homicidal Ideation: No Insight: Good Affect: Good Mood: Appropriate Motor Activity: Normal gait Assessment & Plan Problem List: (1) Schizophrenia Assessment & Plan: On psychiatric evaluation the patient does not present any acute or prominent symptoms of psychosis, he doesn't seem to be paranoid, delusional, disorganized. He denies depressive symptoms, he denies anxiety, he denies suicidal or homicidal ideation, he denies visual and auditory hallucinations. Patient has a extensive history of chronic paranoid schizophrenia, but he has been compliant and responsive to current psychotropic regimen. Patient does not meet criteria for psychiatric admission at this moment. Extensive psycho education, motivation and support provided. He will continue in current psychotropics. We'll continue his psychiatric care as an outpatient.. Ornelas act will be lifted. ICD Code: F20.9 Assessment & Plan Estimated LOS: days Problem Qualifiers (1) Schizophrenia: Qualified Code: F20.0 - Paranoid schizophrenia Bonilla Morgan MD Oct 19, 2016 09:04
[2016-10-19] MEDS: NITROFURANTOIN MONOHYD MACROCR 100 MG CAP PO SCH (09:52)
[2016-10-19] MEDS ORDERED: MACR100C2 PO ×2 (10:15→10:17)
--- NOTE | 2016-10-19 10:16 | PD ---
Physical Exam Time Seen by Provider: 10:14 Narrative Please refer to previous providers documentation. Data Data Last Documented VS Vital Signs Date Time Temp Pulse Resp B/P Pulse Ox O2 Delivery O2 Flow Rate FiO2 10/19/16 06:21 78 16 150/95 96 Room Air 10/18/16 16:47 98.6 Orders Complete Blood Count With Diff (10/18/16 17:03) Comprehensive Metabolic Panel (10/18/16 17:03) Urinalysis - C+S If Indicated (10/18/16 17:03) Psych Screen (10/18/16 17:03) Drug Screen, Random Urine (10/18/16 17:03) Alcohol (Ethanol) (10/18/16 17:03) Urine Culture (10/18/16 17:15) Nitrofurantoin Monohyd Macrocr (Macrobid (10/18/16 19:45) Diet Regular Basic (10/19/16 Breakfast) Labs Laboratory Tests Test 10/18/16 10/18/16 17:15 17:25 Urine Color RED Urine Turbidity CLOUDY Urine pH 8.0 Urine Specific [place] 1.021 Urine Protein GREATER THAN 600 mg/dL Urine Glucose (UA) NEG mg/dL Urine Ketones NEG mg/dL Urine Occult Blood LARGE Urine Nitrite POS Urine Bilirubin NEG Urine Urobilinogen LESS THAN 2.0 MG/DL Urine Leukocyte Esterase LARGE Urine RBC /hpf Urine WBC /hpf Urine Bacteria OCC /hpf Microscopic Urinalysis Comment CULTURE INDICATED Urine Opiates Screen NEG Urine Barbiturates Screen NEG Urine Amphetamines Screen NEG Urine Benzodiazepines Screen NEG Urine Cocaine Screen POS Urine Cannabinoids Screen NEG White Blood Count 5.3 TH/MM3 Red Blood Count 5.34 MIL/MM3 Hemoglobin 15.6 GM/DL Hematocrit 47.9 % Mean Corpuscular Volume 89.7 FL Mean Corpuscular Hemoglobin 29.2 PG Mean Corpuscular Hemoglobin 32.5 % Concent Red Cell Distribution Width 14.5 % Platelet Count 248 TH/MM3 Mean Platelet Volume 8.2 FL Neutrophils (%) (Auto) 51.7 % Lymphocytes (%) (Auto) 31.0 % Monocytes (%) (Auto) 14.6 % Eosinophils (%) (Auto) 1.9 % Basophils (%) (Auto) 0.8 % Neutrophils # (Auto) 2.8 TH/MM3 Lymphocytes # (Auto) 1.7 TH/MM3 Monocytes # (Auto) 0.8 TH/MM3 Eosinophils # (Auto) 0.1 TH/MM3 Basophils # (Auto) 0.0 TH/MM3 CBC Comment DIFF FINAL Differential Comment Sodium Level 145 MEQ/L Potassium Level 4.3 MEQ/L Chloride Level 110 MEQ/L Carbon Dioxide Level 29.5 MEQ/L Anion Gap 6 MEQ/L Blood Urea Nitrogen 12 MG/DL Creatinine 1.12 MG/DL Estimat Glomerular Filtration 81 ML/MIN Rate Random Glucose 93 MG/DL Calcium Level 9.3 MG/DL Total Bilirubin 0.6 MG/DL Aspartate Amino Transf 81 U/L (AST/SGOT) Alanine Aminotransferase 88 U/L (ALT/SGPT) Alkaline Phosphatase 56 U/L Total Protein 7.4 GM/DL Albumin 3.2 GM/DL Ethyl Alcohol Level LESS THAN 3 MG/DL MDM Medical Record Reviewed: Yes Supervised Visit with ARTIE: No Narrative Course Pt is to be discharged but needs RX for macrobid prior to discharge for UTI. Diagnosis Primary Impression: Schizophrenia Qualified Code: F20.0 - Paranoid schizophrenia Patient Instructions: General Instructions, Schizophrenia (ED), Medical Clearance for Psychiatric Care (ED) Departure Forms: Tests/Procedures Additional Instruction: Patient is medically cleared for psychiatric screening and disposition. Dx: Chronic Schizophrenia, Paranoid Type. Follow up with outpatient primary care provider. Keep already scheduled appts. Follow up with outpatient psychiatric provider/Jelani Act . Return to ER if symptoms worsen. Med/Other Pt SpecificInfo: Prescription(s) given Scripts Nitrofurantoin Monohydrate Macrocrystals (Macrobid)100 Mg [id number] Mg PO BID 7 Days Ref 0 Prov:Catalina Pearson 10/19/16 Disposition: 01 DISCHARGE HOME Condition: Stable Catalina Pearson Oct 19, 2016 10:16
== END 2016-10-19 11:52 | disposition home or self-care (01) ==
LOC: NEDAMB 15:57 → NEPJ 10-19 11:52
DX: F20.0 Paranoid schizophrenia (principal); N39.0 Urinary tract infection, site not specified; B96.89 Other specified bacterial agents as the cause of diseases classified elsewhere
CPT/HCPCS: 80053; 80307; 81001; 85025; 87086; 99284

== ENCOUNTER 2016-10-22 05:29 | Emergency (ER) | payer OTHER ==
[~2016-10-22] VITALS: Ht 175.3 cm; Wt 70.0 kg
[~2016-10-22 05:29] MED LIST changes: -CIPR-9 PO; -FLUP5TAB PO; -HYDR-3133 PO; +MACR100C2 PO; -RISP4TAB41 PO
[2016-10-22 05:31] VITALS: BP 139/80; PULSE 83; RESP 16; TEMP 98.7; O2SAT 98
[2016-10-22] MEDS ORDERED: SODIUM CHLORIDE 0.9% FLUSH 10 ML FLUSH IVF PRN (07:15)
--- NOTE | 2016-10-22 07:44 | PD ---
HPI Chief Complaint: Complaint Time Seen by Provider: 06:53 Travel History International Travel<30 days: No Contact w/Intl Traveler<30days: No Traveled to known affect area: No History of Present Illness HPI The patient's 61 years old. He has a history of urinary retention. He has had a Bowers catheter for several months. He was supposed to meet with Dr. Simpson of urology yesterday however forgot the appointment and missed it. He arrives stating he's had blood in his urine and that he's had difficulty voiding. He's had no nausea vomiting or fever. PFSH Past Medical History Bipolar Disorder: Yes (schizoaffective bipolar disorder) Diminished Hearing: No Genitourinary: Yes (URINARY RETENTION) Schizophrenia: Yes Tetanus Vaccination: Unknown Influenza Vaccination: No Past Surgical History Appendectomy: Yes Social History Alcohol Use: Yes (DAILY) Tobacco Use: No Substance Use: Yes (CRACK COCAINE 10/20/2016) Allergies-Medications (Allergen,Severity, Reaction): Coded Allergies: No Known Allergies (Unverified , 10/22/16) Reported Meds & Prescriptions Reported Meds & Active Scripts Active Macrobid (Nitrofurantoin Monoh/Nitrofur Macro) 100 Mg Cap 100 Mg PO BID 10 Days Macrobid (Nitrofurantoin Monoh/Nitrofur Macro) 100 Mg Cap 100 Mg PO BID 7 Days Review of Systems Except as stated in HPI: all other systems reviewed are Neg General / Constitutional: No: Fever Genitourinary: Positive: Other (retention) Physical Exam Narrative GENERAL: 61-year-old male no acute distress resting supine in bed GENITOURINARY: There is a urinary Bowers catheter in place with a leg bag with some red blood and minimal purulent liquid. External genitalia normal. SKIN: Focused skin assessment warm/dry. HEAD: Atraumatic. Normocephalic. EYES: Pupils equal and round. No scleral icterus. No injection or drainage. ENT: No nasal bleeding or discharge. Mucous membranes pink and moist. NECK: Trachea midline. No JVD. CARDIOVASCULAR: Regular rate and rhythm. No murmur appreciated. RESPIRATORY: No accessory muscle use. Clear to auscultation. Breath sounds equal bilaterally. GASTROINTESTINAL: Abdomen soft, non-tender, nondistended. Hepatic and splenic margins not palpable. MUSCULOSKELETAL: No obvious deformities. No clubbing. No cyanosis. No edema. NEUROLOGICAL: Awake and alert. No obvious cranial nerve deficits. Motor grossly within normal limits. Normal speech. PSYCHIATRIC: Appropriate mood and affect; insight and judgment normal. Data Data Last Documented VS Vital Signs Date Time Temp Pulse Resp B/P Pulse Ox O2 Delivery O2 Flow Rate FiO2 10/22/16 09:20 84 15 137/65 97 10/22/16 05:31 98.7 Room Air VS reviewed Orders Basic Metabolic Panel (Bmp) (10/22/16 07:12) Complete Blood Count With Diff (10/22/16 07:12) Urinalysis - C+S If Indicated (10/22/16 07:12) Sodium Chloride 0.9% Flush (Ns Flush) (10/22/16 07:15) Replace Bowers (10/22/16 07:12) Drug Screen, Random Urine (10/22/16 07:12) Iv Access Insert/Monitor (10/22/16 07:12) Urine Culture (10/22/16 07:30) Nitrofurantoin Monohyd Macrocr (Macrobid (10/22/16 08:45) Labs Laboratory Tests Test 10/22/16 10/22/16 07:25 07:30 White Blood Count 5.4 TH/MM3 Red Blood Count 5.21 MIL/MM3 Hemoglobin 15.2 GM/DL Hematocrit 46.6 % Mean Corpuscular Volume 89.5 FL Mean Corpuscular Hemoglobin 29.1 PG Mean Corpuscular Hemoglobin 32.6 % Concent Red Cell Distribution Width 14.3 % Platelet Count 233 TH/MM3 Mean Platelet Volume 8.5 FL Neutrophils (%) (Auto) 46.0 % Lymphocytes (%) (Auto) 31.1 % Monocytes (%) (Auto) 17.6 % Eosinophils (%) (Auto) 4.7 % Basophils (%) (Auto) 0.6 % Neutrophils # (Auto) 2.5 TH/MM3 Lymphocytes # (Auto) 1.7 TH/MM3 Monocytes # (Auto) 0.9 TH/MM3 Eosinophils # (Auto) 0.3 TH/MM3 Basophils # (Auto) 0.0 TH/MM3 CBC Comment DIFF FINAL Differential Comment Sodium Level 142 MEQ/L Potassium Level 4.5 MEQ/L Chloride Level 108 MEQ/L Carbon Dioxide Level 28.0 MEQ/L Anion Gap 6 MEQ/L Blood Urea Nitrogen 19 MG/DL Creatinine 1.17 MG/DL Estimat Glomerular Filtration 77 ML/MIN Rate Random Glucose 87 MG/DL Calcium Level 9.4 MG/DL Urine Color RED Urine Turbidity HAZY Urine pH 8.5 Urine Specific [place] 1.014 Urine Protein 300 mg/dL Urine Glucose (UA) NEG mg/dL Urine Ketones NEG mg/dL Urine Occult Blood LARGE Urine Nitrite POS Urine Bilirubin NEG Urine Urobilinogen LESS THAN 2.0 MG/DL Urine Leukocyte Esterase SMALL Urine RBC /hpf Urine WBC 26 /hpf Urine Triple Phosphate MANY /hpf Crystals Urine Bacteria OCC /hpf Microscopic Urinalysis Comment CULTURE INDICATED Urine Opiates Screen NEG Urine Barbiturates Screen NEG Urine Amphetamines Screen NEG Urine Benzodiazepines Screen NEG Urine Cocaine Screen POS Urine Cannabinoids Screen NEG MDM Medical Decision Making Medical Screen Exam Complete: Yes Emergency Medical Condition: Yes Medical Record Reviewed: Yes Differential Diagnosis Urinary retention, urinary tract infection, renal failure, drug abuse Narrative Course Bowers catheter replaced. CBC & BMP Diagram 10/22/16 07:25 UA: UTI present Urine drug screen: positive for cocaine Prior microbiology isolates reveal Macrobid sensitive Staphylococcus epidermidis and Escherichia coli. Necessity of strict compliance discussed with the patient. 1L urine collected after Bowers replaced. Approx 100cc collected within following hour. Diagnosis Primary Impression: Urinary tract infection Qualified Code: T83.511D - Urinary tract infection associated with indwelling urethral catheter, subsequent encounter Additional Impressions: Hematuria Cocaine abuse Referrals: Benji Simpson MD call for appointment Additional Instructions: You have a choice when it comes to health care, and we are glad that you chose [facility]. Hopefully, we have met your expectations on today's visit. You are welcome to return to [facility] at any time, as we are committed to meeting the health care needs of our community. Med/Other Pt SpecificInfo: Prescription(s) given Scripts Nitrofurantoin Monohydrate Macrocrystals (Macrobid)100 Mg Tms377 Mg PO BID 10 Days Ref 0 Prov:Domo Srinivasan MD 10/22/16 Disposition: 01 DISCHARGE HOME Condition: Stable Domo Srinivasan MD Oct 22, 2016 07:43
[2016-10-22 07:48] LABS: AUTOMATED NEUTROPHIL # 2.5 TH/MM3 (1.8-7.7); BASOPHIL % 0.6 % (0.0-2.0); EOSINOPHIL # 0.3 TH/MM3 (0-0.4); EOSINOPHIL % 4.7 % (0.0-4.0); HEMATOCRIT 46.6 % (39.0-51.0); HEMO FLAGS DIFF FINAL; LYMPH % 31.1 % (9.0-44.0); LYMPHOCYTE # 1.7 TH/MM3 (1.0-4.8); MEAN CELL VOLUME 89.5 FL (80.0-100.0); MEAN CORPUSCULAR HEMOGLOBIN 29.1 PG (27.0-34.0); MEAN CORPUSCULAR HGB CONC 32.6 % (32.0-36.0); MONO % 17.6 % (0.0-8.0); PLATELET COUNT 233 TH/MM3 (150-450); RED BLOOD COUNT 5.21 MIL/MM3 (4.50-5.90); RED CELL DISTRIBUTION WIDTH 14.3 % (11.6-17.2); WHITE BLOOD COUNT 5.4 TH/MM3 (4.0-11.0)
[2016-10-22 08:08] LABS: POTASSIUM 4.5 MEQ/L (3.5-5.1)
[2016-10-22 08:25] LABS: AMPHETAMINE, URINE NEG (NEG); BACTERIA, URINE OCC /hpf; BARBITURATES, URINE NEG (NEG); BLOOD, URINE LARGE (NEG); COCAINE, URINE POS (NEG); COMMENT (UR) CULTURE INDICATED; CULTURE IF INDICATED CULTURE INDICATED; GLUCOSE,URINE NEG (NEG); KETONE, URINE NEG (NEG); PH, URINE 8.5 (5.0-8.5); TRIPLE PHOSPHATE CRYSTAL,URINE MANY /hpf
[2016-10-22 08:26] LABS: NITRITE,URINE POS (NEG); URINE COLOR RED (YELLW/STRAW)
[2016-10-22] MEDS ORDERED: MACR100C2 PO (08:38)
[2016-10-22] MEDS ORDERED: NITROFURANTOIN MONOHYD MACROCR 100 MG CAP PO ONE (08:45)
[2016-10-22 09:20] VITALS: BP 137/65
== END 2016-10-22 10:37 | disposition home or self-care (01) ==
LOC: NEPC 05:29
DX: T83.511A Infection and inflammatory reaction due to indwelling urethral catheter, initial encounter (principal); R31.9 Hematuria, unspecified; F14.10 Cocaine abuse, uncomplicated; Z86.59 Personal history of other mental and behavioral disorders; Z87.448 Personal history of other diseases of urinary system; Z87.440 Personal history of urinary (tract) infections
CPT/HCPCS: 51702; 80048; 80307; 81001; 85025; 87086

== ENCOUNTER 2016-10-23 14:56 | Emergency (ER) | payer OTHER ==
[~2016-10-23] VITALS: Ht 175.3 cm; Wt 80.0 kg
[2016-10-23 15:02] VITALS: BP 183/105; PULSE 111; RESP 25; TEMP 98; O2SAT 98
[2016-10-23 15:10] VITALS: BP 185/105; PULSE 107; RESP 25; TEMP 98; O2SAT 98
[2016-10-23 15:33] VITALS: BP 120/67
--- NOTE | 2016-10-23 15:42 | PD ---
HPI Chief Complaint: Complaint Time Seen by Provider: 15:42 Travel History International Travel<30 days: No Contact w/Intl Traveler<30days: No Traveled to known affect area: No History of Present Illness HPI 61-year-old male with a history of urinary retention with indwelling Ramirez catheter and schizoaffective disorder presents to the emergency department for evaluation of acute urinary retention. The patient states that since last night he has been unable to urinate and has had pressure and distention over his bladder. States that he was producing only a small amount of bloody urine from the Ramirez catheter since last night. States that he was seen in our emergency department yesterday for similar complaints and was prescribed antibiotics, states he started taking the antibiotics this morning. He denies any fever, chills, nausea, vomiting, testicular pain. Prior to my arrival to the patient's room the nurse had already irrigated the ramirez and he is producing urine and the patient is stating he has had complete resolution of symptoms. No other complaints. PFSH Past Medical History Bipolar Disorder: Yes (schizoaffective bipolar disorder) Diminished Hearing: No Genitourinary: Yes (URINARY RETENTION) Immunizations Current: No Schizophrenia: Yes Tetanus Vaccination: Unknown Influenza Vaccination: Yes Past Surgical History Appendectomy: Yes Social History Alcohol Use: Yes (DAILY) Tobacco Use: Yes (1/2 ppd) Substance Use: Yes (CRACK COCAINE 10/20/2016) Allergies-Medications (Allergen,Severity, Reaction): Coded Allergies: No Known Allergies (Unverified , 10/23/16) Reported Meds & Prescriptions Reported Meds & Active Scripts Active Macrobid (Nitrofurantoin Monoh/Nitrofur Macro) 100 Mg Cap 100 Mg PO BID 10 Days Macrobid (Nitrofurantoin Monoh/Nitrofur Macro) 100 Mg Cap 100 Mg PO BID 7 Days Review of Systems Except as stated in HPI: all other systems reviewed are Neg Physical Exam Narrative GENERAL: Well-nourished and well-developed pleasant patient in no acute distress who is nontoxic appearing. SKIN: Warm and dry. HEAD: Normocephalic and atraumatic. EYES: No injection, drainage, or hyphema noted. PERRLA. EOMI. ENT: No nasal drainage noted. Oropharynx is clear. NECK: Supple and the trachea is midline. CARDIOVASCULAR: Regular rate and rhythm. RESPIRATORY: Breath sounds are equal bilaterally with no accessory muscle use, wheezing, rhonchi, or crackles. GASTROINTESTINAL: Abdomen is soft, non-tender, and nondistended. MUSCULOSKELETAL: No obvious deformities, swelling, cyanosis, or ecchymosis is present throughout the upper and lower extremities. Patient has full range of motion without any signs of neurovascular compromise. NEUROLOGICAL: Awake, alert, and oriented. Normal speech and gait. Cranial nerves are grossly intact. Data Data Last Documented VS Vital Signs Date Time Temp Pulse Resp B/P Pulse Ox O2 Delivery O2 Flow Rate FiO2 10/23/16 15:33 120/67 10/23/16 15:10 98.0 107 25 98 Room Air Orders Bladder/Catheter Irrigation (10/23/16 15:16) MDM Medical Decision Making Medical Screen Exam Complete: Yes Emergency Medical Condition: Yes Differential Diagnosis Urinary retention versus ramirez catheter malfunction versus obstruction versus UTI Narrative Course 61-year-old male presents to the emergency department for evaluation of acute urinary retention in the setting of indwelling Ramirez catheter. Patient is afebrile, vital signs are stable. His heart rate, blood pressure and respirations were slightly elevated prior to Ramirez irrigation. Now his vital signs are within normal limits and his symptoms are completely resolved. He has been seen here in our emergency department multiple times for similar complaints over the last several months. He was seen in our ED yesterday for similar symptoms and had lab work and a urinalysis, labs were unremarkable of her UA showed obvious urinary tract infection. He was started on Macrobid and just took his first dose this morning. The nurses reporting that he had a large amount of sediment noted during irrigation. I suspect that he has a urinary tract infection and increased sediment causing his obstruction. In any case, symptoms have resolved after irrigation and he is producing urine without difficulty now. He is instructed to continue taking the Macrobid and follow-up with his urologist. I discussed the case with my attending physician Dr. Morrison who is aware of the patients history, physical examination findings, and treatment plan. Diagnosis Primary Impression: Acute urinary retention Referrals: Urologist Patient Instructions: General Instructions, Urinary Retention in Men (ED), Urinary Tract Infection in Men (ED) Additional Instructions: Take the Macrobid as prescribed. Follow-up with your Urologist. Return to the ED for any acute worsening of symptoms. Med/Other Pt SpecificInfo: No Change to Meds Disposition: 01 DISCHARGE HOME Condition: Stable Veronica Cherry Oct 23, 2016 15:42
== END 2016-10-23 16:50 | disposition home or self-care (01) ==
LOC: NEPD 14:56
DX: R33.9 Retention of urine, unspecified (principal)
CPT/HCPCS: 51700